=== PATIENT | female | born 1945 | race Caucasian/White ===

== ENCOUNTER → 2016-12-05 | Outpatient (CLI) | payer MEDICARE ==
--- NOTE | 2016-12-06 14:50 | WWHP ---
CHIEF COMPLAINT: The patient is here for her routine gynecologic exam and mammogram. HPI: This is a 71 year old G2, P0, 2-0-2, with an LMP of 1989. The patient is without gynecologic complaints and denies any post menopausal bleeding. PAST MEDICAL HISTORY: Colon cancer in 2004, chronic hypertension. Gastroesophageal reflux disease, hypothyroidism, and elevated cholesterol. MEDICATIONS: Losartan with Hydrochlorothiazide 50/12.5 one daily, Fenofibrate 14.5 mg daily, Omeprazole 20 mg daily, Levothyroxine 1 daily, Atorvastatin one daily. ALLERGIES: LISINOPRIL. PAST SURGICAL HISTORY: Colonoscopy in 2014 and she has had multiple colonoscopies prior to this. Surgery for colon cancer in 2004. Other surgeries include tonsillectomy, bladder suspension surgery with appendectomy, unilateral oophorectomy and partial oophorectomy on the other side. Umbilical hernia repair, carpal tunnel surgery, bunionectomy and foot surgery. 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 SOCIAL HISTORY: She denies tobacco, alcohol and drug use. She is a and has 4 grandchildren. 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 FAMILY HISTORY: Is unchanged from the 2016 H&P. REVIEW OF SYSTEMS: She has lost about 8 pounds over the last year, she denies respiratory, cardiac, or GI problems. She denies maltreatment or falling. : She denies any significant urinary leakage. PHYSICAL EXAMINATION: Blood pressure 121/74, height 5'2", weight 153 pounds, temperature 98.3, pulse 62. This is a well developed, well nourished white female who is alert and oriented times 3, in no acute distress. HEENT; Within normal limits. Neck: Supple without mass or thyromegaly. CHEST AND LUNGS: Clear to auscultation. Heart: Regular rate and rhythm. Breasts: Without masses or discharge. Axillary Exam: Is negative for adenopathy. Back: Negative for CVA tenderness. Abdomen: Soft, nontender, without palpable masses. PELVIC EXAM: External genitalia reveals mild to moderate atrophy without lesions. Vagina reveals moderate atrophy without lesions, The cervix is very atrophic and is nearly flush with the back of the vagina and this is unchanged from her previous exam. The uterus is mid position, non-gravid size and nontender. There are no palpable adnexal masses or tenderness. Rectovaginal exam is negative for mass or tenderness and is negative for occult blood. EXTREMITIES; Nontender. IMPRESSION: 1. 71 year-old menopausal female with normal gynecologic exam. PLAN: 1. Pap smear was deferred since she had a normal one less than 2 years ago. 2. Self breast examination was discussed. 3. Mammogram will be done today. 4. Osteoporosis prevention was discussed. 5. She is declining flu shots and does not plan on getting one this fall. 6. She will return here in one year. JAN
--- NOTE | 2016-12-07 09:07 | MM ---
Reason for exam: screening (asymptomatic). Last mammogram was performed 1 year and 1 month ago. History: Patient is postmenopausal, history of colon cancer, and history of other cancer. Physical Findings: A clinical breast exam by your physician is recommended on an annual basis and results should be correlated with mammographic findings. MG 3D Screening Mammo W/Cad Bilateral CC and MLO view(s) were taken. Prior study comparison: October 26, 2015, bilateral MG 3d screening mammo w/cad. The breast tissue is heterogeneously dense. This may lower the sensitivity of mammography. There is chronic nodularity in the right breast, unchanged from 2016. No significant changes when compared with prior studies. ASSESSMENT: Negative, BI-RAD 1 RECOMMENDATION: Routine screening mammogram of both breasts in 1 year.
== END | disposition home or self-care (01) ==
LOC: WWCWWP 15:41
PROVIDERS: ATTEND Obstetrics & Gynecology
DX: Z12.31 Encounter for screening mammogram for malignant neoplasm of breast (principal)
CPT/HCPCS: 77063; G0202

== ENCOUNTER → 2018-01-16 | Outpatient (CLI) | payer MEDICARE ==
[2018-01-16 09:20] VITALS: BP 127/74; PULSE 64; TEMP 98.1; BMI 28.5
--- NOTE | 2018-01-16 09:58 | P.HPOB ---
History of Present Illness H&P Date: 01/16/18 Chief Complaint: The patient is here for her routine gynecologic exam and mammogram. This is a 72-year-old with LMP of 1989. The patient is without gynecologic complains and denies any postmenopausal bleeding. Review of Systems She is gained 3 pounds over the last year. She denies respiratory, cardiac and G.I. problems. She denies maltreatment or problems with falling. : she denies any significant problems with urinary leakage. 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 History of Any Multi-Drug Resistant Organisms: MRSA Date of last positivie culture/infection: 09/16/2015 MDRO Source:: nose culture Past Surgical History: Adenoidectomy, Appendectomy, Bladder Surgery, Bowel Resection, Hernia Repair, Orthopedic Surgery, Tonsillectomy Additional Past Surgical History / Comment(s): colon sx, RECTOCELE, BUNIONECTOMY , GALINDO CARPAL TUNNEL RELEASE, OVARIAN CYSTS, RT OVARY REMOVED, UMBILICAL HERNIA REPAIR ABD HERNIA REPAIR,LT FOOT 2ND TOE SX REPIARED. Last colonoscopy 2014 Past Anesthesia/Blood Transfusion Reactions: Motion Sickness Additional Past Anesthesia/Blood Transfusion Reaction / Comment(s): PT IS A ,LIVES ALONE HAS 1 INDOOR CAT. 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 Past Psychological History: No Psychological Hx Reported Smoking Status: Never smoker Past Alcohol Use History: None Reported Past Drug Use History: None Reported Additional History: She is a and does volunteer work. - Past Family History Father Family Medical History: CVA/TIA Additional Family Medical History / Comment(s): BRAIN BLEED- AT AGE 86 Mother Family Medical History: Congestive Heart Failure (CHF) Additional Family Medical History / Comment(s): AGE 84. Maternal grandmother had rectal cancer. Brother(s) Family Medical History: Cancer (Gastric) Medications and Allergies Home Medications Medication Instructions Recorded Confirmed Type Atorvastatin [Lipitor] 80 mg PO DAILY 09/14/15 01/16/18 History Fenofibrate Nanocrystallized 145 mg PO DAILY 09/14/15 01/16/18 History [Fenofibrate] Levothyroxine Sodium [Levoxyl] 100 mcg PO DAILY 09/14/15 01/16/18 History Omeprazole 20 mg PO DAILY 09/14/15 01/16/18 History Aspirin [Children's Aspirin] mg PO DAILY 01/16/18 History Ergocalciferol (Vitamin D2) unit PO PRN 01/16/18 History [Vitamin D2] Iron mg PO DAILY 01/16/18 History Losartan [Cozaar] mg PO DAILY 01/16/18 History Allergies Allergy/AdvReac Type Severity Reaction Status Date / Time lisinopril AdvReac Cough Verified 01/16/18 09:17 Exam Vital Signs Temp Pulse BP 01/16/18 09:17 98.1 F 64 127/74 Intake and Output 01/15/18 01/16/18 01/16/18 22:59 06:59 14:59 Other: Weight 70.76 kg Height 5'2", BMI 28.5. This is a well-developed well-nourished white female who is alert and oriented times 3 in no acute distress. HEENT: Within normal limits. NECK: Supple without mass or thyromegaly. CHEST AND LUNGS: Clear to auscultation. HEART: Regular rate and rhythm. BREASTS: Are without mass or discharge. AXILLARY EXAM: Negative for adenopathy. BACK: Negative for CVA tenderness. ABDOMEN: Soft, nontender, without palpable masses. PELVIC EXAM: Normal external genitalia with moderate atrophy. Cervix and vagina appear normal with moderate atrophy. There is no unusual discharge. There is no evidence of prolapse. The uterus is midposition, nongravid size and nontender. There are no palpable adnexal masses or tenderness. RECTAL EXAM: rectovaginal exam is negative for mass or tenderness and is negative for occult blood. EXTREMITIES: Nontender. IMPRESSION: 1. 72 year old menopausal female with normal gynecologic exam. 2. History of colon cancer with no evidence of recurrence on exam. PLAN: 1. Pap smear was performed. 2. Self breast awareness was discussed with the patient. 3. Screening mammogram will be done today. 4. Osteoporosis prevention was discussed. We will plan a repeating bone density testing in 2020. 5. She has not been getting flu shots in the fall. I have recommended that she reconsider and get flu shots in the fall. 6. She will return in one year.
--- NOTE | 2018-01-17 14:52 | MM ---
Reason for exam: screening (asymptomatic). Last mammogram was performed 1 year and 1 month ago. History: Patient is postmenopausal, history of colon cancer, and history of other cancer. Physical Findings: A clinical breast exam by your physician is recommended on an annual basis and results should be correlated with mammographic findings. MG 3D Screening Mammo W/Cad Bilateral CC and MLO view(s) were taken. Prior study comparison: December 05, 2016, bilateral MG 3d screening mammo w/cad. October 26, 2015, bilateral MG 3d screening mammo w/cad. There are scattered fibroglandular densities. No significant changes when compared with prior studies. ASSESSMENT: Benign, BI-RAD 2 RECOMMENDATION: Routine screening mammogram of both breasts in 1 year.
== END ==
LOC: WWCWWP 08:58
PROVIDERS: ATTEND Obstetrics & Gynecology
DX: Z12.31 Encounter for screening mammogram for malignant neoplasm of breast (principal)
CPT/HCPCS: 77063; 77067

== ENCOUNTER → 2019-04-02 | Outpatient (CLI) | payer MEDICARE ==
[2019-04-02 08:15] VITALS: BP 126/81; PULSE 61; RESP 18; TEMP 97.8; BMI 30.2
--- NOTE | 2019-04-02 08:51 | P.HPOB ---
History of Present Illness H&P Date: 04/02/19 Chief Complaint: The patient is here for her routine gynecologic exam and ma mmogram. This is a 72-year-old 202 with an LMP of 1989. The patient is without gynecologic complaints. Review of Systems She has gained about 10 pounds over the last year. She denies respiratory, cardiac and G.I. problems. She denies maltreatment or problems with falling. : she denies any significant problems with urinary leakage. Past Medical History Past Medical History: Cancer, GERD/Reflux, Hyperlipidemia, Hypertension, Thyroid Disorder Additional Past Medical History / Comment(s): Colon cancer 2004. Hypothyroidism. 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 History of Any Multi-Drug Resistant Organisms: MRSA Date of last positivie culture/infection: 09/16/2015 MDRO Source:: nose culture Past Surgical History: Adenoidectomy, Appendectomy, Bladder Surgery, Bowel Resection, Hernia Repair, Orthopedic Surgery, Tonsillectomy Additional Past Surgical History / Comment(s): colon sx, RECTOCELE, BUNIONECTOMY, GALINDO CARPAL TUNNEL RELEASE, OVARIAN CYSTS, RT OVARY REMOVED, UMBILICAL HERNIA REPAIR ABD HERNIA REPAIR,LT FOOT 2ND TOE SX REPIARED. Bilateral cataract surgery. 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 - Past Family History Father Family Medical History: CVA/TIA Additional Family Medical History / Comment(s): BRAIN BLEED- AT AGE 86 Mother Family Medical History: Congestive Heart Failure (CHF) Additional Family Medical History / Comment(s): AGE 84. Maternal grandmother had rectal cancer. Brother(s) Family Medical History: Cancer Additional Family Medical History / Comment(s): Gastric cancer. Medications and Allergies Home Medications Medication Instructions Recorded Confirmed Type Atorvastatin [Lipitor] 80 mg PO DAILY 09/14/15 01/16/18 History Fenofibrate Nanocrystallized 145 mg PO DAILY 09/14/15 01/16/18 History [Fenofibrate] Levothyroxine Sodium [Levoxyl] 100 mcg PO DAILY 09/14/15 01/16/18 History Omeprazole 20 mg PO DAILY 09/14/15 01/16/18 History Aspirin [Children's Aspirin] mg PO DAILY 01/16/18 History Iron mg PO DAILY 01/16/18 History Losartan [Cozaar] mg PO DAILY 01/16/18 History Biotin 5 mg PO DAILY 04/02/19 04/02/19 History Calcium Carbonate/Vitamin D3 1 each PO DAILY 04/02/19 04/02/19 History [Calcium 250-D Tablet] Multivitamin [Multivitamins Adult 1 each PO DAILY 04/02/19 04/02/19 History Gummies] Vitamin B Complex/Folic Acid 1 tab PO DAILY 04/02/19 04/02/19 History [B-Complex Tablet] Allergies Allergy/AdvReac Type Severity Reaction Status Date / Time lisinopril AdvReac Cough Verified 04/02/19 08:15 Exam Vital Signs Temp Pulse Resp BP Pulse Ox 04/02/19 08:09 97.8 F 61 18 126/81 99 Intake and Output 04/01/19 04/02/19 04/02/19 22:59 06:59 14:59 Other: Weight 74.843 kg Height 5 feet 2 inches, weight 165 pounds, BMI 30.2. This is a well-developed well-nourished white female who is alert and oriented times 3 in no acute distress. HEENT: Within normal limits. NECK: Supple without mass or thyromegaly. CHEST AND LUNGS: Clear to auscultation. HEART: Regular rate and rhythm. BREASTS: Are without mass or discharge. AXILLARY EXAM: Negative for adenopathy. BACK: Negative for CVA tenderness. ABDOMEN: Soft, nontender, without palpable masses. PELVIC EXAM: Normal external genitalia with mild to moderate atrophy. Cervix and vagina appear normal with mild to moderate atrophy. There is no unusual discharge. There is no evidence of prolapse. The uterus is midposition, nongravid size and nontender. There are no palpable adnexal masses or tenderness. RECTAL EXAM: Rectovaginal exam is negative for mass or tenderness and is negative for occult blood. EXTREMITIES: Nontender. IMPRESSION: 1. 73-year-old menopausal female with normal gynecologic exam. 2. History of colon cancer with no evidence of recurrence on exam. PLAN: 1. Pap smear was deferred since she had a normal one on 01/16/2018. 2. Self breast awareness was discussed with the patient. 3. Screening mammogram will be done today. 4. Osteoporosis prevention was discussed. I have stressed the importance of adequate calcium, vitamin D and regular exercise. Recommended amounts of calcium and vitamin D were also discussed. We will repeat bone density testing in 1-2 years. 5. She states she does not get flu shots in the fall. I have recommended that she reconsider this decision. 6. The patient was advised to return in 1-2 years for her well woman examination.
--- NOTE | 2019-04-03 09:09 | MM ---
Reason for exam: screening (asymptomatic). Last mammogram was performed 1 year and 2 months ago. History: Patient is postmenopausal, history of colon cancer, and history of other cancer. Physical Findings: A clinical breast exam by your physician is recommended on an annual basis and results should be correlated with mammographic findings. MG 3D Screening Mammo W/Cad Bilateral CC and MLO view(s) were taken. Prior study comparison: January 16, 2018, bilateral MG 3d screening mammo w/cad. December 05, 2016, bilateral MG 3d screening mammo w/cad. The breast tissue is heterogeneously dense. This may lower the sensitivity of mammography. No suspicious abnormality. No significant changes when compared with prior studies. ASSESSMENT: Negative, BI-RAD 1 RECOMMENDATION: Routine screening mammogram of both breasts in 1 year.
== END | disposition home or self-care (01) ==
LOC: WWCWWP 07:59
PROVIDERS: ATTEND Obstetrics & Gynecology
DX: Z12.31 Encounter for screening mammogram for malignant neoplasm of breast (principal)
CPT/HCPCS: 77063; 77067

== ENCOUNTER → 2020-09-07 | Outpatient (CLI) | payer MEDICARE ==
--- NOTE | 2020-09-07 16:30 | BD ---
EXAMINATION TYPE: Axial Bone Density DATE OF EXAM: 09/07/2020 COMPARISON: 10.26.2015 CLINICAL HISTORY: 74 YR OLD FEMALE.....ICD-10 CODE: M89.9 DISORDER OF BONE Height: 61 Weight: 164 FRAX RISK QUESTIONS: History of Fracture in Adulthood: YES Secondary Osteoporosis: YES 3. Menopause before 45: YES RISK FACTORS HISTORY OF: History of Wrist Fracture: BILAT WRISTS FX AN ADULT Postmenopausal woman: YES, AT AGE 30 Lost more than 2 inches in height since high school: YES Hyperparathyroidism: NO Adrenal Insufficiency: NO MEDICATIONS: Thyroid Medications: SYNTHROID FOR OVER 30 YRS Additional Medications: BP MEDS, HX OF CHEMO, FOR COLON CA, REFLUX MEDS, STATIN FOR CHOLESTEROL, VIT D AND CALCIUM Additional History: HYPERTENSION, COLON CA, REFLUX, CHOLESTEROL, ARTHRITIS EXAM MEASUREMENTS: Bone mineral densitometry was performed using the [employer] System. Bone mineral density as measured about the Lumbar spine is: ----- L1-L4(G/cm2): 1.388 T Score Values are as follows: ----- L1: 1.2 ----- L2: 1.4 ----- L3: 1.9 ----- L4: 2.0 ----- L1-L4: 1.7 Bone mineral density has: Increased 8.3% since study of: 10.08.2015 Bone mineral density about the R hip (g/cm2): 1.019 Bone mineral density about the L hip (g/cm2): 1.027 T Score values are as follows: -----R Neck: -0.5 -----L Neck: -0.2 -----R Total: 0.1 -----L Total: 0.2 Bone mineral density has: Decreased -2.2% since study of: 10.08.2015 FRAX%s: THERE IS A 12.6% CHANCE FOR A MAJOR OSTEOPOROTIC FX AND 1.3% FOR HIP......PROBABILITY FOR F X IN 10 YRS TIME IMPRESSION: Normal (Values between +1 and -1 indicate normal bone mass). Consider repeating this study in 5 year s or sooner if there is some new clinical indication. NOTE: T-SCORE=SD OF THE YOUNG ADULT MEAN.
--- NOTE | 2020-09-09 13:23 | MM ---
Reason for exam: screening (asymptomatic). Last mammogram was performed 1 year and 5 months ago. History: Patient is postmenopausal, history of colon cancer, and history of other cancer. Physical Findings: A clinical breast exam by your physician is recommended on an annual basis and results should be correlated with mammographic findings. MG 3D Screening Mammo W/Cad Bilateral CC and MLO view(s) were taken. Prior study comparison: April 02, 2019, bilateral MG 3d screening mammo w/cad. January 16, 2018, bilateral MG 3d screening mammo w/cad. There are scattered fibroglandular densities. No significant changes when compared with prior studies. ASSESSMENT: Benign, BI-RAD 2 RECOMMENDATION: Routine screening mammogram of both breasts in 1 year.
== END | disposition home or self-care (01) ==
LOC: RADMAMWWP 11:44
PROVIDERS: ATTEND Internal Medicine
DX: Z12.31 Encounter for screening mammogram for malignant neoplasm of breast (principal); M89.9 Disorder of bone, unspecified
CPT/HCPCS: 77063; 77067; 77080

== ENCOUNTER 2021-09-15 13:18 | Observation (INO) | payer MEDICARE ==
[2021-09-15 15:31] LABS: Basophils # (A) 0.1 k/uL (0-0.2); Basophils % (A) 1 %; Eosinophils # (A) 0.1 k/uL (0-0.7); Eosinophils % (A) 1 %; HCT 42.1 % (34.0-46.0); HGB 13.6 gm/dL (11.4-16.0); Lymphocytes # (A) 2.4 k/uL (1.0-4.8); Lymphocytes % (A) 33 %; MCH 29.9 pg (25.0-35.0); MCHC 32.3 g/dL (31.0-37.0); MCV 92.5 fL (80.0-100.0); Mean Platelet Volume 7.5; Monocytes # (A) 0.4 k/uL (0-1.0); Monocytes % (A) 6 %; Neutrophils # (A) 4.1 k/uL (1.3-7.7); Neutrophils % (A) 57 %; Platelet Count 399 k/uL (150-450); RBC 4.56 m/uL (3.80-5.40); RDW 13.1 % (11.5-15.5); WBC 7.2 k/uL (3.8-10.6)
[2021-09-15 15:41] LABS: Albumin 4.1 g/dL (3.5-5.0); Calcium 9.6 mg/dL (8.4-10.2); Lactic Acid, Venous 0.7 mmol/L (0.7-2.0); Magnesium 1.8 mg/dL (1.6-2.3); Potassium 3.6 mmol/L (3.5-5.1); Total Bilirubin 0.9 mg/dL (0.2-1.3); Total Protein 6.7 g/dL (6.3-8.2)
[2021-09-15 15:44] LABS: INR 0.9 (<1.2); Partial Thromboplastin Time 24.3 sec (22.0-30.0); Prothrombin Time 10.3 sec (9.0-12.0)
--- NOTE | 2021-09-15 16:14 | ED ---
General Adult HPI - General Chief complaint: GI Bleed Stated complaint: blood in stool/urine Time Seen by Provider: 09/15/21 14:36 Source: patient Mode of arrival: wheelchair Limitations: physical limitation - History of Present Illness Initial comments: This 75-year-old female with a past medical history of colon cancer in 2002 presents to the emergency department with black tarry stool that began today. Patient states last Sunday she had an episode of bright red stool and states since then she has not had any stool until today. Patient states she did have similar symptoms when she was diagnosed with colon cancer years ago. Patient states her last colonoscopy was more than 5 years ago. Patient denies any abdominal pain or hemorrhoids. Patient denies any chest pain, shortness of breath, abdominal pain, nausea, vomiting, change in bladder, fever, headache, lightheadedness, dizziness, change in vision. - Related Data Home Medications Medication Instructions Recorded Confirmed Atorvastatin [Lipitor] 80 mg PO DAILY 09/14/15 09/15/21 Fenofibrate Nanocrystallized 145 mg PO DAILY 09/14/15 09/15/21 [Fenofibrate] Omeprazole 20 mg PO DAILY 09/14/15 09/15/21 Aspirin EC [Ecotrin Low Dose] 81 mg PO DAILY 09/15/21 09/15/21 Ferrous Sulfate [Feosol] 325 mg PO DAILY 09/15/21 09/15/21 Levothyroxine Sodium [Synthroid] 112 mcg PO DAILY 09/15/21 09/15/21 Losartan/Hydrochlorothiazide 1 tab PO DAILY 09/15/21 09/15/21 [Hyzaar 100-25 Tablet] Prevagen 1 cap PO DAILY 09/15/21 09/15/21 Allergies Allergy/AdvReac Type Severity Reaction Status Date / Time lisinopril AdvReac Cough Verified 09/15/21 15:49 Review of Systems ROS Statement: Those systems with pertinent positive or pertinent negative responses have been documented in the HPI. ROS Other: All systems not noted in ROS Statement are negative. Past Medical History Past Medical History: Cancer, GERD/Reflux, Hyperlipidemia, Hypertension, Thyroid Disorder Additional Past Medical History / Comment(s): Colon cancer 2004. Hypothyroidism. History of Any Multi-Drug Resistant Organisms: MRSA Date of last positivie culture/infection: 09/16/2015 MDRO Source:: nose culture Past Surgical History: Adenoidectomy, Appendectomy, Bladder Surgery, Bowel Resection, Hernia Repair, Orthopedic Surgery, Tonsillectomy Additional Past Surgical History / Comment(s): colon sx, RECTOCELE, BUNIONECTOMY, GALINDO CARPAL TUNNEL RELEASE, OVARIAN CYSTS, RT OVARY REMOVED, UMBILICAL HERNIA REPAIR ABD HERNIA REPAIR,LT FOOT 2ND TOE SX REPIARED. Bilateral cataract surgery. 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 Past Psychological History: No Psychological Hx Reported Smoking Status: Never smoker Past Alcohol Use History: None Reported Past Drug Use History: None Reported - Past Family History Father Family Medical History: CVA/TIA Additional Family Medical History / Comment(s): BRAIN BLEED- AT AGE 86 Mother Family Medical History: Congestive Heart Failure (CHF) Additional Family Medical History / Comment(s): AGE 84. Maternal grandmother had rectal cancer. Brother(s) Family Medical History: Cancer Additional Family Medical History / Comment(s): Gastric cancer. General Exam Limitations: physical limitation General appearance: alert, in no apparent distress Head exam: Present: atraumatic, normocephalic, normal inspection Eye exam: Present: normal appearance, PERRL, EOMI. Absent: scleral icterus, conjunctival injection, periorbital swelling Pupils: Present: normal accommodation ENT exam: Present: normal exam, mucous membranes moist Neck exam: Present: normal inspection, full ROM. Absent: tenderness, meningismus, lymphadenopathy Respiratory exam: Present: normal lung sounds bilaterally. Absent: respiratory distress, wheezes, rales, rhonchi, stridor, chest wall tenderness, accessory muscle use, decreased breath sounds Cardiovascular Exam: Present: regular rate, normal rhythm, normal heart sounds. Absent: systolic murmur, diastolic murmur, rubs, gallop, clicks GI/Abdominal exam: Present: soft, normal bowel sounds. Absent: distended, tenderness, guarding, rebound, rigid Extremities exam: Present: normal inspection, full ROM, normal capillary refill. Absent: tenderness, pedal edema, joint swelling, calf tenderness Back exam: Present: normal inspection, full ROM. Absent: CVA tenderness (R), CVA tenderness (L), paraspinal tenderness, vertebral tenderness Neurological exam: Present: alert, oriented X3, CN II-XII intact, normal gait Psychiatric exam: Present: normal affect, normal mood Skin exam: Present: warm, dry, intact, normal color. Absent: rash Course Vital Signs 09/15/21 09/15/21 13:40 18:26 Temperature 97.9 F 98.7 F Pulse Rate 75 78 Respiratory 18 18 Rate Blood Pressure 122/75 120/68 O2 Sat by Pulse 97 98 Oximetry Medical Decision Making - Medical Decision Making This 75-year-old female the past medical history of colon cancer presents emergency department with melanotic stool episode today and acute kidney injury. Patient's labs without any leukocytosis, pullulation unremarkable, BUN 34, creatinine 2.34, patient without any abdominal pain or discomfort. Patient's primary care physician is and [facility] is currently taking his patients at this time. I spoke with Dr.Aaron Caballero who agreed to admit patient to their services for further observation, fluids and GI evaluation. Patient started on fluids and placed on nothing by mouth after midnight. Patient really agreed to be admitted to the hospital for further workup, evaluation and treatment. Discussed case in detail with my attending, Dr. López. - Lab Data Result diagrams: 09/15/21 15:18 09/15/21 15:18 Lab Results 09/15/21 09/15/21 09/15/21 Range/Units 15:18 15:18 15:18 WBC 7.2 (3.8-10.6) k/uL RBC 4.56 (3.80-5.40) m/uL Hgb 13.6 (11.4-16.0) gm/dL Hct 42.1 (34.0-46.0) % MCV 92.5 (80.0-100.0) fL MCH 29.9 (25.0-35.0) pg MCHC 32.3 (31.0-37.0) g/dL RDW 13.1 (11.5-15.5) % Plt Count 399 (150-450) k/uL MPV 7.5 Neutrophils % 57 % Lymphocytes % 33 % Monocytes % 6 % Eosinophils % 1 % Basophils % 1 % Neutrophils # 4.1 (1.3-7.7) k/uL Lymphocytes # 2.4 (1.0-4.8) k/uL Monocytes # 0.4 (0-1.0) k/uL Eosinophils # 0.1 (0-0.7) k/uL Basophils # 0.1 (0-0.2) k/uL PT 10.3 (9.0-12.0) sec INR 0.9 (<1.2) APTT 24.3 (22.0-30.0) sec Sodium 137 (137-145) mmol/L Potassium 3.6 (3.5-5.1) mmol/L Chloride 103 (98-107) mmol/L Carbon Dioxide 24 (22-30) mmol/L Anion Gap 10 mmol/L BUN 34 H (7-17) mg/dL Creatinine 2.34 H (0.52-1.04) mg/dL Est GFR (CKD-EPI)AfAm 23 (>60 ml/min/1.73 sqM) Est GFR (CKD-EPI)NonAf 20 (>60 ml/min/1.73 sqM) Glucose 99 (74-99) mg/dL Plasma Lactic Acid Gabino (0.7-2.0) mmol/L Calcium 9.6 (8.4-10.2) mg/dL Magnesium 1.8 (1.6-2.3) mg/dL Total Bilirubin 0.9 (0.2-1.3) mg/dL AST 33 (14-36) U/L ALT 24 (4-34) U/L Alkaline Phosphatase 45 (38-126) U/L Ammonia (<30) umol/L Troponin I (0.000-0.034) ng/mL Total Protein 6.7 (6.3-8.2) g/dL Albumin 4.1 (3.5-5.0) g/dL Lipase 190 (23-300) U/L Blood Type Blood Type Recheck Bld Type Recheck Status Antibody Screen Spec Expiration Date 09/15/21 09/15/21 09/15/21 Range/Units 15:18 15:18 15:18 WBC (3.8-10.6) k/uL RBC (3.80-5.40) m/uL Hgb (11.4-16.0) gm/dL Hct (34.0-46.0) % MCV (80.0-100.0) fL MCH (25.0-35.0) pg MCHC (31.0-37.0) g/dL RDW (11.5-15.5) % Plt Count (150-450) k/uL MPV Neutrophils % % Lymphocytes % % Monocytes % % Eosinophils % % Basophils % % Neutrophils # (1.3-7.7) k/uL Lymphocytes # (1.0-4.8) k/uL Monocytes # (0-1.0) k/uL Eosinophils # (0-0.7) k/uL Basophils # (0-0.2) k/uL PT (9.0-12.0) sec INR (<1.2) APTT (22.0-30.0) sec Sodium (137-145) mmol/L Potassium (3.5-5.1) mmol/L Chloride (98-107) mmol/L Carbon Dioxide (22-30) mmol/L Anion Gap mmol/L BUN (7-17) mg/dL Creatinine (0.52-1.04) mg/dL Est GFR (CKD-EPI)AfAm (>60 ml/min/1.73 sqM) Est GFR (CKD-EPI)NonAf (>60 ml/min/1.73 sqM) Glucose (74-99) mg/dL Plasma Lactic Acid Gabino 0.7 (0.7-2.0) mmol/L Calcium (8.4-10.2) mg/dL Magnesium (1.6-2.3) mg/dL Total Bilirubin (0.2-1.3) mg/dL AST (14-36) U/L ALT (4-34) U/L Alkaline Phosphatase (38-126) U/L Ammonia <9 (<30) umol/L Troponin I <0.012 (0.000-0.034) ng/mL Total Protein (6.3-8.2) g/dL Albumin (3.5-5.0) g/dL Lipase (23-300) U/L Blood Type A Negative Blood Type Recheck A Neg Bld Type Recheck Status No Antibody Screen NEGATIVE Spec Expiration Date 09/18/20212317 Disposition Clinical Impression: Melanotic stools, Acute kidney injury Disposition: ADMITTED IP TO THIS [facility] Condition: Serious Referrals: Jae Lopez MD [Primary Care Provider] - 1-2 days
[2021-09-15] MEDS ORDERED: NALOXONE 0.4 MG/ML 1 ML VIAL IV PRN (17:51)
[2021-09-15] MEDS: PANTOPRAZOLE 40 MG/10 ML VIAL IVP SCH (21:12)
[2021-09-15 22:56] LABS: Basophils # (A) 0.1 k/uL (0-0.2); Basophils % (A) 1 %; Eosinophils # (A) 0.2 k/uL (0-0.7); Eosinophils % (A) 3 %; HGB 13.3 gm/dL (11.4-16.0); Lymphocytes # (A) 2.5 k/uL (1.0-4.8); Lymphocytes % (A) 36 %; MCH 29.8 pg (25.0-35.0); MCHC 32.3 g/dL (31.0-37.0); MCV 92.3 fL (80.0-100.0); Mean Platelet Volume 7.3; Monocytes # (A) 0.3 k/uL (0-1.0); Monocytes % (A) 5 %; Neutrophils # (A) 3.8 k/uL (1.3-7.7); Neutrophils % (A) 54 %; Platelet Count 357 k/uL (150-450); RBC 4.44 m/uL (3.80-5.40)
--- NOTE | 2021-09-15 23:22 | CT ---
EXAMINATION TYPE: CT brain wo con DATE OF EXAM: 09/15/2021 COMPARISON: 02/28/2010 HISTORY: confusion CT DLP: 1096.4 mGycm Automated exposure control for dose reduction was used. Images of the brain obtained without contrast. There is some cerebral cortical atrophy. There is no mass effect or midline shift. There is no sign o f intracranial hemorrhage. The calvarium is intact. No evidence of cerebral edema. There is normal ae ration of the mastoid sinuses. IMPRESSION: Negative unenhanced head CT scan. Mild atrophy. No adverse change.
[2021-09-16] MEDS: PANTOPRAZOLE 40 MG/10 ML VIAL IVP SCH ×2 (08:14→20:43)
[2021-09-16] MEDS: LEVOTHYROXINE 112 MCG TAB PO SCH (10:44)
[2021-09-16] MEDS: SODIUM CHLORIDE 0.9% 1,000 ML IV SCH ×2 (10:44→23:59)
[2021-09-16] MEDS: LOSARTAN 50 MG TAB PO SCH (10:44)
[2021-09-16 12:45] LABS: Appearance,Urine Clear (Clear); Bilirubin,Urine Negative (Negative); Blood,Urine Negative (Negative); Color,Urine Light Yellow; Glucose,Urine (UA) Negative (Negative); Ketones,Urine Negative (Negative); Leukocyte Esterase,Urine Small (Negative); Mucus,Urine Rare /hpf; Nitrite,Urine Negative (Negative); Protein,Urine Negative (Negative); RBC,Urine <1 /hpf (0-5); Specific Gravity,Urine 1.008 (1.001-1.035); Urobilinogen,Urine <2.0 mg/dL (<2.0); WBC,Urine 2 /hpf (0-5)
--- NOTE | 2021-09-16 12:52 | P.CONS ---
History of Present Illness - Reason for Consult Consult date: 09/16/21 Melanotic stools, Hx colon cancer Requesting physician: Alejandrina Bagley - Chief Complaint Blood in stool or urine - History of Present Illness Some very pleasant 75-year-old white female who presented to the emergency department I advised by her primary care physician. Patient reportedly had what she believes was bright red blood from her rectum a week ago Sunday 1 episode. She states she is actually not sure if it came from her urine or her rectum. States she did not notice any stool mixed in. She did not have any abdominal pain or cramping at that time. States overall she felt well and continued on to mandaen. Throughout the week she felt fine however yesterday she did have a dark stool in the morning and was concerned that she could be bleeding. She has a past medical history of colon cancer she believes around [address] Aguilar and Dr. Arechiga. She underwent resection and chemotherapy at that time. the patient is unsure of when her last colonoscopy was. Her daughter reports she believes it was in the last 3-5 years. States that they do believe it was done at the [facility]. They're unsure what grace reynoso performed the colonoscopy. She denies being on any anticoagulation, and no regular NSAIDs. Apparently yesterday afternoon while she was in the hospital she had a period that she became confused and unaware of her surroundings. She had a CT of the brain that showed no acute process with mild atrophy, no adverse change. WBC 7.0 hemoglobin 13.3 hematocrit 41 platelet count 357,000 INR 0.9 sodium 137 potassium 3.6 BUN 34 creatinine 2.3 for total bilirubin 0.9 AST 33 ALT 24 alkaline phosphatase 45 Past Medical History Past Medical History: Cancer, GERD/Reflux, Hyperlipidemia, Thyroid Disorder Additional Past Medical History / Comment(s): Colon cancer 2004. Hypothyroidism. Pt. reports BP is normally low. History of Any Multi-Drug Resistant Organisms: MRSA Year Discovered:: 09/16/2015 MDRO Source:: nose culture Past Surgical History: Adenoidectomy, Appendectomy, Bladder Surgery, Bowel Resection, Hernia Repair, Orthopedic Surgery, Tonsillectomy Additional Past Surgical History / Comment(s): colon sx, RECTOCELE, BUNIONECTOMY, GALINDO CARPAL TUNNEL RELEASE, OVARIAN CYSTS, RT OVARY REMOVED, UMBILICAL HERNIA REPAIR ABD HERNIA REPAIR,LT FOOT 2ND TOE SX REPIARED. Bilateral cataract surgery. 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 Past Psychological History: No Psychological Hx Reported Smoking Status: Never smoker Past Alcohol Use History: None Reported Past Drug Use History: None Reported - Past Family History Father Family Medical History: CVA/TIA Additional Family Medical History / Comment(s): BRAIN BLEED- AT AGE 86 Mother Family Medical History: Congestive Heart Failure (CHF) Additional Family Medical History / Comment(s): AGE 84. Maternal grandmother had rectal cancer. Brother(s) Family Medical History: Cancer Additional Family Medical History / Comment(s): Gastric cancer. Medications and Allergies Home Medications Medication Instructions Recorded Confirmed Type Atorvastatin [Lipitor] 80 mg PO DAILY 09/14/15 09/15/21 History Fenofibrate Nanocrystallized 145 mg PO DAILY 09/14/15 09/15/21 History [Fenofibrate] Omeprazole 20 mg PO DAILY 09/14/15 09/15/21 History Aspirin EC [Ecotrin Low Dose] 81 mg PO DAILY 09/15/21 09/15/21 History Ferrous Sulfate [Feosol] 325 mg PO DAILY 09/15/21 09/15/21 History Levothyroxine Sodium [Synthroid] 112 mcg PO DAILY 09/15/21 09/15/21 History Losartan/Hydrochlorothiazide 1 tab PO DAILY 09/15/21 09/15/21 History [Hyzaar 100-25 Tablet] Prevagen 1 cap PO DAILY 09/15/21 09/15/21 History Allergies Allergy/AdvReac Type Severity Reaction Status Date / Time lisinopril AdvReac Cough Verified 09/15/21 15:49 Physical Exam Vitals: Vital Signs Temp Pulse Pulse Resp BP BP Pulse Ox 09/16/21 04:46 98.3 F 64 18 143/87 98 09/16/21 00:14 18 09/15/21 23:39 97.9 F 60 18 143/70 93 L 09/15/21 23:21 97.2 F L 67 16 149/71 98 09/15/21 22:51 78 16 142/81 98 09/15/21 19:30 63 16 134/95 98 09/15/21 18:26 98.7 F 78 18 120/68 98 09/15/21 13:40 97.9 F 75 18 122/75 97 Intake and Output 09/15/21 09/16/21 09/16/21 22:59 06:59 14:59 Intake Total 200 Balance 200 Intake: Oral 200 Other: Voiding Method Toilet # Voids 2 # Bowel Movements 0 Weight 72.575 kg Results CBC & Chem 7: 09/15/21 22:45 09/15/21 15:18 Labs: Abnormal Lab Results - Last 24 Hours (Table) 09/15/21 Range/Units 15:18 BUN 34 H (7-17) mg/dL Creatinine 2.34 H (0.52-1.04) mg/dL Comments: CT of the brain that showed no acute process with mild atrophy, no adverse andersen ge. Assessment and Plan (1) Melanotic stools Narrative/Plan: 75-year-old female who presented to the emergency department as advised by her physician. States a week ago she had one episode of bright red blood that she noticed in the toilet. She states that it was not mixed with stool and she is unsure if it came from her rectum or was mixed in with her urine. She denied any abdominal pain or cramping at that time. She went about her week and stated that she felt fine and then noticed yesterday that she had dark stool. This was concerning to her and she does have a history of colon cancer and was diagnosed in 2004 and was following with Dr. Carrera and Dr. Kumar underwent resection. She believes her last colonoscopy was 3-5 years ago. She is unsure by home. She came in with a hemoglobin of 13.6 with a repeat at 13.3. She does take daily iron. She's not had any further rectal bleeding since she's been admitted. No abdominal pain nausea or vomiting. Possible etiologies could include a diverticular bleed, AVM, or other possible etiologies. However patient's symptoms are resolved, labs are stable and would be reasonable to schedule outpatient EGD and colonoscopy within the next 1-2 weeks. Current Visit: Yes Status: Acute Code(s): K92.1 - MELENA SNOMED Code(s): 7875457 (2) Acute kidney injury Current Visit: Yes Status: Acute Code(s): N17.9 - ACUTE KIDNEY FAILURE, UNSPECIFIED SNOMED Code(s): 77973871 Plan: 1. Continue symptomatic and supportive care 2. Protonix 40 mg daily 3. Patient may have clear liquid diet, advance as tolerated 4. No plans at this time to do EGD and colonoscopy. Recommend outpatient EGD colonoscopy within the next 1-2 weeks. If there is any further concerns with lower GI bleed would recommend surgical consult. Appointment scheduled September 30, 2021 for EGD/Colonoscopy. Thank you for allowing us to participate in the care of the patient, the GI service will sign off, gastroenterology will not be available at the hospital this weekend and through next week. If further evaluation by gastroenterology is required the patient will need transfer as per the primary team's discretion. Dr. Gabriel Boothe I agree with the dictator's note, documented as a scribe by So Watters.
--- NOTE | 2021-09-16 15:34 | P.HPIM ---
History of Present Illness H&P Date: 09/16/21 Chief Complaint: dark stool Patient is a 75-year-old female with a known history of colon cancer in 2004 status post bowel resection, hypothyroidism, GERD, hyperlipidemia and history of bladder surgery presents to ER with complaints of 1 episode of bright red blood per rectum on last Sunday. Since then she has not had any bowel movement. Yesterday she did have dark-colored stool and concerned about she could be bleeding. Denied any nausea or vomiting. No hematemesis. No complaints of chest pain or shortness of breath. Patient had last colonoscopy about 3 to 5 years ago at [facility]. Currently denied any being on anticoagulation. No [id number] pain medications or any NSAIDs.Apparently yesterday afternoon while she was in the hospital she had a period that she became confused and unaware of her surroundings. She had a CT of the brain that showed no acute process with mild atrophy, no adverse change. CT head showed negative and enhanced head CT scan. Mild atrophy. No adverse change. Laboratory data showed WBC 7.2 hemoglobin 13.6 MCV 92.5 and platelets 399 Sodium 137 potassium 3.6 chloride 103 BUN 34 and creatinine 2.34. Her baseline creatinine level 1.2 on 08/09/2021. Liver enzymes are not elevated. Troponin x1 negative and a lipase level of 190 urinalysis is negative for infection. Review of Systems Constitutional: Patient denies any fever or chills . No generalized weakness or weight loss. Abdomen: Patient denied nausea vomiting and diarrhea and abdominal pain.dark stools. Cardiovascular: Patient denies any chest pain or short of breath no palpitations. Respiratory: patient denied any cough is from production. No shortness of breath Neurologic: Patient denied any numbness or tingling headache. Musculoskeletal: Patient denies any complaints of joint swelling or deformity. Skin: Negative Psychiatric: Negative Endocrine: No heat or cold intolerance. No recent weight gain. Genitourinary: No dysuria or hematuria. All other 14 point ROS negative except the above Past Medical History Past Medical History: Cancer, GERD/Reflux, Hyperlipidemia, Thyroid Disorder Additional Past Medical History / Comment(s): Colon cancer 2004. Hypothyroidism. Pt. reports BP is normally low. History of Any Multi-Drug Resistant Organisms: MRSA Date of last positivie culture/infection: 09/16/2015 MDRO Source:: nose culture Past Surgical History: Adenoidectomy, Appendectomy, Bladder Surgery, Bowel Resec tion, Hernia Repair, Orthopedic Surgery, Tonsillectomy Additional Past Surgical History / Comment(s): colon sx, RECTOCELE, BUNIONECTOMY, GALINDO CARPAL TUNNEL RELEASE, OVARIAN CYSTS, RT OVARY REMOVED, UMBILICAL HERNIA REPAIR ABD HERNIA REPAIR,LT FOOT 2ND TOE SX REPIARED. Bilate ral cataract surgery. 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 Past Psychological History: No Psychological Hx Reported Smoking Status: Never smoker Past Alcohol Use History: None Reported Past Drug Use History: None Reported - Past Family History Father Family Medical History: CVA/TIA Additional Family Medical History / Comment(s): BRAIN BLEED- AT AGE 86 Mother Family Medical History: Congestive Heart Failure (CHF) Additional Family Medical History / Comment(s): AGE 84. Maternal grandmother had rectal cancer. Brother(s) Family Medical History: Cancer Additional Family Medical History / Comment(s): Gastric cancer. Medications and Allergies Home Medications Medication Instructions Recorded Confirmed Type Atorvastatin [Lipitor] 80 mg PO DAILY 09/14/15 09/15/21 History Fenofibrate Nanocrystallized 145 mg PO DAILY 09/14/15 09/15/21 History [Fenofibrate] Omeprazole 20 mg PO DAILY 09/14/15 09/15/21 History Aspirin EC [Ecotrin Low Dose] 81 mg PO DAILY 09/15/21 09/15/21 History Ferrous Sulfate [Feosol] 325 mg PO DAILY 09/15/21 09/15/21 History Levothyroxine Sodium [Synthroid] 112 mcg PO DAILY 09/15/21 09/15/21 History Losartan/Hydrochlorothiazide 1 tab PO DAILY 09/15/21 09/15/21 History [Hyzaar 100-25 Tablet] Prevagen 1 cap PO DAILY 09/15/21 09/15/21 History Allergies Allergy/AdvReac Type Severity Reaction Status Date / Time lisinopril AdvReac Cough Verified 09/15/21 15:49 Physical Exam Vitals: Vital Signs Temp Pulse Pulse Resp BP BP Pulse Ox 09/16/21 04:46 98.3 F 64 18 143/87 98 09/16/21 00:14 18 09/15/21 23:39 97.9 F 60 18 143/70 93 L 09/15/21 23:21 97.2 F L 67 16 149/71 98 09/15/21 22:51 78 16 142/81 98 09/15/21 19:30 63 16 134/95 98 09/15/21 18:26 98.7 F 78 18 120/68 98 09/15/21 13:40 97.9 F 75 18 122/75 97 Intake and Output 09/15/21 09/16/21 09/16/21 22:59 06:59 14:59 Intake Total 200 Balance 200 Intake: Oral 200 Other: Voiding Method Toilet # Voids 2 # Bowel Movements 0 Weight 72.575 kg PHYSICAL EXAMINATION: Patient is lying in the bed comfortably, no acute distress, awake alert and oriented.. HEENT: Normocephalic. Neck is supple. Pupils reactive. Nostrils clear. Oral cavity is moist. Neck reveals no JVD, carotid bruits, or thyromegaly. CHEST EXAMINATION: Trachea is central. Symmetrical expansion. Lung grove clear to auscultation and percussion. CARDIAC: Normal S1, S2 with no gallops. No murmurs ABDOMEN: Soft. Bowel sounds normal. No organomegaly. No abdominal bruits. Extremities: reveal no edema. No clubbing or cyanosis Neurologically awake, alert, oriented x3 with well-coordinated movements. No focal deficits noted Skin: No rash or skin lesions. Psychiatric: Coperative. Nonsuicidal Musculoskeletal: No joint swelling or deformity. Normal range of motion. Results CBC & Chem 7: 09/15/21 22:45 09/15/21 15:18 Labs: Abnormal Lab Results - Last 24 Hours (Table) 09/15/21 Range/Units 15:18 BUN 34 H (7-17) mg/dL Creatinine 2.34 H (0.52-1.04) mg/dL Thrombosis Risk Factor Assmnt - DVT/VTE Prophylaxis DVT/VTE Prophylaxis: Mechanical Prophylaxis ordered - Choose All That Apply Each Factor Represents 1 point: Obesity (BMI >25) Each Risk Factor Represents 3 Points: Age 75 years or older Thrombosis Risk Factor Assessment Total Risk Factor Score: 4 Thrombosis Risk Factor Assessment Level: Moderate Risk Assessment and Plan Assessment: Melanotic stools x1 episode. Hemoglobin is stable. History of bright red blood per rectum about 1 week ago. Acute kidney injury with creatinine level 2.34 on admission. Likely prerenal. Baseline 1.2. Episode of confusion overnight. Resolved now. CT head showed no acute process. History of colon cancer s/p resection and 2004 GERD Hyperlipidemia Hypothyroidism DVT prophylaxis with SCDs Plan:-The patient will be continued on IV hydration and monitor H&H. Continue PPI IV and also monitor renal function closely. GI was consulted. Hemoglobin has been stable and recommends colonoscopy and EGD as an outpatient. Currently patient denies any complaints of abdominal pain. Monitor closely. Time with Patient: Greater than 30
[2021-09-16 15:59] LABS: African American GFR (CKD) 36 (>60 ml/min/1.73 sqM); Anion Gap 8 mmol/L; Blood Urea Nitrogen 29 mg/dL (7-17); Calcium 9.5 mg/dL (8.4-10.2); Carbon Dioxide 26 mmol/L (22-30); Chloride 101 mmol/L (98-107); Glucose 85 mg/dL (74-99); Non-African American GFR(CKD) 31 (>60 ml/min/1.73 sqM); Potassium 3.3 mmol/L (3.5-5.1); Sodium 135 mmol/L (137-145)
[2021-09-17] MEDS: LEVOTHYROXINE 112 MCG TAB PO SCH (05:48)
[2021-09-17] MEDS: PANTOPRAZOLE 40 MG/10 ML VIAL IVP SCH (08:46)
[2021-09-17] MEDS: LOSARTAN 50 MG TAB PO SCH (08:46)
[2021-09-17] MEDS ORDERED: ATORVASTATIN 80 MG TAB PO SCH (09:00)
[2021-09-17] MEDS ORDERED: POTASSIUM CHLORIDE ER 20 MEQ TAB.ER PO STA (11:14)
[2021-09-17 11:42] LABS: Basophils # (A) 0.05 X 10*3/uL (0.00-0.10); Eosinophils # (A) 0.22 X 10*3/uL (0.04-0.35); Eosinophils % (A) 4.4 %; HCT 40.6 % (37.2-46.3); HGB 13.1 g/dL (12.0-15.0); Immature Grans, Automated 0.2 %; Lymphocytes # (A) 2.12 X 10*3/uL (0.90-5.00); Lymphocytes % (A) 42.8 %; MCH 29.5 pg (27.0-32.0); MCHC 32.3 g/dL (32.0-37.0); MCV 91.4 fL (80.0-97.0); Monocytes # (A) 0.43 X 10*3/uL (0.20-1.00); Monocytes % (A) 8.7 %; NRBC Per 100 WBC 0 /100 WBCS (0.0-0.0); Neutrophils # (A) 2.12 X 10*3/uL (1.80-7.70); Neutrophils % (A) 42.9 %; Platelet Count 386 X 10*3/uL (140-440); RBC 4.44 X 10*6/uL (4.10-5.20); RDW 13.6 % (11.5-14.5); WBC 4.95 X 10*3/uL (4.50-10.00)
[2021-09-17 11:50] LABS: African American GFR (CKD) 46.5 (60.0-200.0); Anion Gap 10.6 mmol/L (10.00-18.00); BUN/Creat Ratio 14.38 Ratio (12.00-20.00); Blood Urea Nitrogen 18.7 mg/dL (9.0-27.0); Calcium 9.4 mg/dL (8.7-10.3); Carbon Dioxide 24.4 mmol/L (20.0-27.5); Non-African American GFR(CKD) 40.1 (60.0-200.0)
[2021-09-17 13:38] VITALS: BP 150/79; PULSE 58; RESP 18; TEMP 97.3
--- NOTE | 2021-10-06 09:49 | P.DS ---
Providers Date of admission: 09/15/21 17:18 Expected date of discharge: 09/17/21 Attending physician: Carli Bustos Consults: 09/15/21 17:53 Consult Physician Routine Consulting Provider: Kenyetta Boothe Consult Reason/Comments: Melanotic stool, history of colon cancer Do you want consulting provider notified?: Yes Primary care physician: [facility] Course: Discharge diagnosis Melanotic stools x1 episode. Hemoglobin is stable. History of bright red blood per rectum about 1 week ago. Acute kidney injury with creatinine level 2.34 on admission. Likely prerenal. Baseline 1.2. Episode of confusion overnight. Resolved now. CT head showed no acute process. History of colon cancer s/p resection and 2004 GERD Hyperlipidemia Hypothyroidism DVT prophylaxis with SCDs Hospital course Patient is a 75-year-old female with a known history of colon cancer in 2004 status post bowel resection, hypothyroidism, GERD, hyperlipidemia and history of bladder surgery presents to ER with complaints of 1 episode of bright red blood per rectum on last Sunday. Since then she has not had any bowel movement. Yesterday she did have dark-colored stool and concerned about she could be bleeding. Denied any nausea or vomiting. No hematemesis. No complaints of chest pain or shortness of breath. Patient had last colonoscopy about 3 to 5 years ago at [facility]. Currently denied any being on anticoagulation. No [id number] pain medications or any NSAIDs.Apparently yesterday afternoon while she was in the hospital she had a period that she became confused and unaware of her surroundings. She had a CT of the brain that showed no acute process with mild atrophy, no adverse change. CT head showed negative and enhanced head CT scan. Mild atrophy. No adverse change. Laboratory data showed WBC 7.2 hemoglobin 13.6 MCV 92.5 and platelets 399 Sodium 137 potassium 3.6 chloride 103 BUN 34 and creatinine 2.34. Her baseline creatinine level 1.2 on 08/09/2021. Liver enzymes are not elevated. Troponin x1 negative and a lipase level of 190 urinalysis is negative for infection. The patient was continued on IV hydration and monitor H&H. Continue PPI IV and also monitor renal function closely. GI was consulted. Hemoglobin has been stable and recommends colonoscopy and EGD as an outpatient. Currently patient denies any complaints of abdominal pain. PHYSICAL EXAMINATION: Patient is lying in the bed comfortably, no acute distress, awake alert and oriented.. HEENT: Normocephalic. Neck is supple. Pupils reactive. Nostrils clear. Oral cavi ty is moist. Neck reveals no JVD, carotid bruits, or thyromegaly. CHEST EXAMINATION: Trachea is central. Symmetrical expansion. Lung grove clear to auscultation and percussion. CARDIAC: Normal S1, S2 with no gallops. No murmurs ABDOMEN: Soft. Bowel sounds normal. No organomegaly. No abdominal bruits. Extremities: reveal no edema. No clubbing or cyanosis Neurologically awake, alert, oriented x3 with well-coordinated movements. No focal deficits noted Skin: No rash or skin lesions. Psychiatric: Coperative. Nonsuicidal Musculoskeletal: No joint swelling or deformity. Normal range of motion. Discharge vitals reviewed. Patient Condition at Discharge: Stable Plan - Discharge Summary Discharge Rx Participant: Yes New Discharge Prescriptions: New Pantoprazole Sodium [Protonix] 40 mg PO AC-BRKFST #30 tab Continue Fenofibrate Nanocrystallized [Fenofibrate] 145 mg PO DAILY Atorvastatin [Lipitor] 80 mg PO DAILY Prevagen 1 cap PO DAILY Losartan/Hydrochlorothiazide [Hyzaar 100-25 Tablet] 1 tab PO DAILY Aspirin EC [Ecotrin Low Dose] 81 mg PO DAILY Ferrous Sulfate [Iron (65 MG Elemental)] 325 mg PO DAILY Levothyroxine Sodium [Synthroid] 112 mcg PO DAILY Discontinued Omeprazole 20 mg PO DAILY Discharge Medication List Atorvastatin [Lipitor] 80 mg PO DAILY 09/14/15 [History] Fenofibrate Nanocrystallized [Fenofibrate] 145 mg PO DAILY 09/14/15 [History] Aspirin EC [Ecotrin Low Dose] 81 mg PO DAILY 09/15/21 [History] Ferrous Sulfate [Iron (65 MG Elemental)] 325 mg PO DAILY 09/15/21 [History] Levothyroxine Sodium [Synthroid] 112 mcg PO DAILY 09/15/21 [History] Losartan/Hydrochlorothiazide [Hyzaar 100-25 Tablet] 1 tab PO DAILY 09/15/21 [History] Prevagen 1 cap PO DAILY 09/15/21 [History] Pantoprazole Sodium [Protonix] 40 mg PO AC-BRKFST #30 tab 09/17/21 [Rx] Follow up Appointment(s)/Referral(s): Kenyetta Boothe MD [STAFF PHYSICIAN] - 09/30/21 (For EGD/Colonoscopy at [facility]) Jae Lopez MD [Primary Care Provider] - 1-2 days Patient Instructions/Handouts: Pantoprazole (By mouth), Rectal Bleeding (DC) Activity/Diet/Wound Care/Special Instructions: Call Dr. Boothe office on Sunday to schedule your procedure. Activity Limited until seen by Dr. Turner as tolerated Discharge Disposition: HOME SELF-CARE
== END 2021-09-17 16:17 | disposition home or self-care (01) ==
LOC: EC 13:18 → 5NMEDONC 17:18
PROVIDERS: ADMIT Hospitalist; ATTEND Hospitalist
DX: K92.1 Melena (principal); N17.9 Acute kidney failure, unspecified; R31.9 Hematuria, unspecified; I10 Essential (primary) hypertension; E78.5 Hyperlipidemia, unspecified; K21.9 Gastro-esophageal reflux disease without esophagitis; E03.9 Hypothyroidism, unspecified; R41.0 Disorientation, unspecified; E66.9 Obesity, unspecified; Z68.29 Body mass index [BMI] 29.0-29.9, adult; Z79.82 Long term (current) use of aspirin; Z79.890 Hormone replacement therapy; Z79.899 Other long term (current) drug therapy; Z88.8 Allergy status to other drugs, medicaments and biological substances; Z85.038 Personal history of other malignant neoplasm of large intestine; Z86.14 Personal history of Methicillin resistant Staphylococcus aureus infection; Z90.49 Acquired absence of other specified parts of digestive tract; Z90.721 Acquired absence of ovaries, unilateral; Z98.42 Cataract extraction status, left eye; Z98.41 Cataract extraction status, right eye; Z92.21 Personal history of antineoplastic chemotherapy; Z98.890 Other specified postprocedural states; Z82.3 Family history of stroke; Z80.0 Family history of malignant neoplasm of digestive organs; Z82.49 Family history of ischemic heart disease and other diseases of the circulatory system
CPT/HCPCS: 96376 ×2; 96361 ×2; 96374; 99285; 36415; 86900; 86901; 80053; 80048 ×2; 82140; 83605; 83690; 83735; 84484; 85025 ×2; 85610; 85730; 86850; 81001; 70450; G0378 ×3; C9113 ×3

== ENCOUNTER → 2021-09-21 | Outpatient (CLI) | payer MEDICARE ==
--- NOTE | 2021-09-22 13:23 | MM ---
Reason for exam: screening (asymptomatic). Last mammogram was performed 1 year ago. History: Patient is postmenopausal, has history of colon cancer at age 40, and history of other cancer. Physical Findings: A clinical breast exam by your physician is recommended on an annual basis and results should be correlated with mammographic findings. MG 3D Screening Mammo W/Cad Bilateral CC and MLO view(s) were taken. Prior study comparison: September 07, 2020, bilateral MG 3d screening mammo w/cad. April 02, 2019, bilateral MG 3d screening mammo w/cad. The breast tissue is heterogeneously dense. This may lower the sensitivity of mammography. There is no discrete abnormality. ASSESSMENT: Negative, BI-RAD 1 RECOMMENDATION: Routine screening mammogram of both breasts in 1 year.
== END | disposition home or self-care (01) ==
LOC: RADMAMWWP 13:54
PROVIDERS: ATTEND Internal Medicine
DX: Z12.31 Encounter for screening mammogram for malignant neoplasm of breast (principal); Z78.0 Asymptomatic menopausal state; Z85.038 Personal history of other malignant neoplasm of large intestine
CPT/HCPCS: 77063; 77067

== ENCOUNTER → 2023-07-09 | Outpatient (CLI) | payer MEDICARE ==
[2023-07-09 16:45] LABS: African American GFR (CKD) 47 (>60 ml/min/1.73 sqM); Blood Urea Nitrogen 36 mg/dL (7-17); Non-African American GFR(CKD) 41 (>60 ml/min/1.73 sqM)
--- NOTE | 2023-07-09 18:44 | CT ---
EXAMINATION TYPE: CT soft tissue neck w con DATE OF EXAM: 07/09/2023 5:07 PM COMPARISON: None HISTORY: States that there were abnormal findings on prior exams CT DLP: 287.0 mGycm Automated exposure control for dose reduction was used. CONTRAST: CT scan of the neck is performed following with IV Contrast, patient injected with 80 mL of Isovue 30 0. Axial images are obtained, coronal and sagittal reformatted images are reviewed. FINDINGS: Thyroid tissue is not identified. The larynx including the cricoid arytenoid and thyroid cartilages as well as the true and false vocal cords are normal and symmetric. The tongue base, epiglottis, aryepiglottic folds, piriform sinuses and vallecula are normal and symme tric. There is no pharyngeal or parapharyngeal soft tissue mass. The submandibular glands and parotid glands are normal and symmetric. The great vessels of the neck are normal. There is no adenopathy, soft tissue mass or abscess. There is no inflammation is seen in the soft tis sues. IMPRESSION: 1. No evidence of thyroid tissue raising the question of prior thyroidectomy. 2. No other significant abnormality seen
== END | disposition home or self-care (01) ==
LOC: RADCTMAIN 15:16
PROVIDERS: ATTEND Internal Medicine
DX: R93.89 Abnormal findings on diagnostic imaging of other specified body structures (principal)
CPT/HCPCS: 82565; 84520; 70491; 36415; Q9967

== ENCOUNTER → 2023-10-03 | Outpatient (CLI) | payer MEDICARE ==
--- NOTE | 2023-10-05 12:09 | MM ---
Reason for Exam: Screening (asymptomatic). Last screening mammogram was performed 12 month(s) ago. Patient History: Menarche at age 11. First Full-Term at age 27. Left ovary removed at age 30. Right ovary removed at age 30. Hysterectomy at age 40. Postmenopausal. Colorectal cancer, age 40. Maternal aunt had breast cancer, age 40. Risk Values: Christie 5 year model risk: 2.1%. NCI Lifetime model risk: 3.8%. Prior Study Comparison: 09/07/2020 Bilateral Screening Mammogram, [facility]. 09/21/2021 Bilateral Screening Mammogram, [facility]. 09/27/2022 Bilateral MG 3D screening mammo w/cad, [facility]. Tissue Density: The breasts are heterogeneously dense, which may obscure small masses. Findings: Analyzed By CAD. There is no suspicious group of microcalcifications or new suspicious mass in either breast. Overall Assessment: Benign, BI-RAD 2 Management: Screening Mammogram of both breasts in 1 year. . Patient should continue monthly self-breast exams. A clinical breast exam by your physician is recommended on an annual basis. This exam should not preclude additional follow-up of suspicious palpable abnormalities. Note on Christie scores and lifetime risk: 1. A Christie score greater than 3% is considered moderate risk. If this is the case, consider specialist referral to assess eligibility for a risk reducing agent. 2. If overall lifetime risk for the development of breast cancer is 20% or higher, the patient may qualify for future screening with alternating mammogram and breast MRI. Electronically signed and approved by: Kai Bolivar M.D. Radiologis
== END | disposition home or self-care (01) ==
LOC: RADMAMWWP 16:36
PROVIDERS: ATTEND Internal Medicine
DX: Z12.31 Encounter for screening mammogram for malignant neoplasm of breast (principal); Z78.0 Asymptomatic menopausal state; Z80.3 Family history of malignant neoplasm of breast
CPT/HCPCS: 77063; 77067

== ENCOUNTER → 2024-11-19 | Outpatient (CLI) | payer MEDICARE ==
--- NOTE | 2024-11-20 07:37 | MM ---
Reason for Exam: Screening (asymptomatic). Last mammogram was performed 1 year(s) and 1 month(s) ago. Patient History: Menarche at age 11. First Full-Term at age 27. Left ovary removed at age 30. Right ovary removed at age 30. Hysterectomy at age 40. Postmenopausal. Colorectal cancer, age 40. Maternal aunt had breast cancer, age 40. Risk Values: Christie 5 year model risk: 2.1%. NCI Lifetime model risk: 3.4%. Prior Study Comparison: 09/21/2021 Bilateral Screening Mammogram, [facility]. 09/27/2022 Bilateral MG 3D screening mammo w/cad, [facility]. 10/03/2023 Bilateral MG 3D screening mammo w/cad, [facility]. Tissue Density: The breasts are heterogeneously dense, which may obscure small masses. Findings: Analyzed By CAD. Right breast: There is no suspicious group of microcalcifications or new suspicious mass. Left breast: There is no suspicious group of microcalcifications or new suspicious mass. Overall Assessment: Negative, BI-RAD 1 Management: Screening Mammogram of both breasts in [address] [facility] will attempt to contact patient to return for supplemental views and ultrasound if indicated. Patient should continue monthly self-breast exams. A clinical breast exam by your physician is recommended on an annual basis. This exam should not preclude additional follow-up of suspicious palpable abnormalities. Note on Christie scores and lifetime risk: 1. A Christie score greater than 3% is considered moderate risk. If this is the case, consider specialist referral to assess eligibility for a risk reducing agent. 2. If overall lifetime risk for the development of breast cancer is 20% or higher, the patient may qualify for future screening with alternating mammogram and breast MRI. [facility], , 11/20/2024 7:34 AM. Electronically signed and approved by: Adam Mendiola DO
== END | disposition home or self-care (01) ==
LOC: RADMAMWWP 16:21
PROVIDERS: ATTEND Internal Medicine
DX: Z12.31 Encounter for screening mammogram for malignant neoplasm of breast (principal); R92.333 Mammographic heterogeneous density, bilateral breasts; Z78.0 Asymptomatic menopausal state; Z80.3 Family history of malignant neoplasm of breast
CPT/HCPCS: 77063; 77067